=== PATIENT | male | born 1940 | race American Indian/Alaskan Native ===

== ENCOUNTER 2019-09-23 08:23 | Outpatient (CLI) | payer MEDICARE, OTHER ==
[2019-09-23 09:13] LABS: Blood Urea Nitrogen 13 mg/dL (9-20)
--- NOTE | 2019-09-23 11:17 | Cat Scan Report ---
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 COMPARISON: None TECHNIQUE: Routine chest CT exam performed following intravenous contrast administration. Consent wa s obtained prior to the administration of contrast. Note: All CT scans at this location are performed using CT dose reduction employed for ALARA by means of automated exposure control. CONTRAST: 100 mL Omnipaque 300. FINDINGS: CHEST CT: Heart and Pericardium: No significant abnormality. Vasculature: No significant abnormality. Lymphatics: No lymphadenopathy. Lungs: Moderate emphysematous changes with bilateral upper lobe subpleural bulla. Right upper lobe vo lume loss with tubular bronchiectasis. No pulmonary nodule or mass. No airspace disease or pleural ef fusion. Trachea and Bronchi: No significant abnormality. Osseous Structures: Degenerative change in the spine. No suspicious bone lesions. Additional Findings: Normal adrenal glands. IMPRESSION: 1. Emphysema predominantly affecting the upper lobes. 2. Right upper lobe volume loss and tubular bronchiectasis. 3. No evidence of tumor. Signer Name: Robe Sierra MD Signed: 09/23/2019 11:12 AM Workstation Name: [id number]
--- NOTE | 2019-09-23 11:22 | Cat Scan Report ---
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 TECHNIQUE: Axial CT images were obtained through the abdomen and pelvis after 100 cc Omnipaque [address] scans at this location are performed using CT dose reduction for ALARA by means of automated exposure control. COMPARISON: CT abdomen and pelvis 06/08/2015 images only. FINDINGS: LOWER CHEST: No significant abnormality. LIVER: Moderate decreased attenuation is seen throughout the liver characteristic for steatosis. GALLBLADDER: No significant abnormality. BILE DUCTS: No significant abnormality. PANCREAS: No significant abnormality. SPLEEN: No significant abnormality. ADRENALS: No significant abnormality. RIGHT KIDNEY and URETER: No significant abnormality. LEFT KIDNEY and URETER: No significant abnormality. STOMACH and SMALL BOWEL: No significant abnormality. COLON: No significant abnormality. APPENDIX: No significant abnormality. PERITONEUM: No free fluid. No free air. No fluid collection. LYMPH NODES: No significant adenopathy. AORTA and ARTERIES: Moderate vascular calcifications nonaneurysmal aorta and iliac arteries. IVC and VEINS: No significant abnormality. URINARY BLADDER: No significant abnormality. REPRODUCTIVE ORGANS: No significant abnormality. ADDITIONAL FINDINGS: None. SKELETAL SYSTEM: Moderate degenerative changes lower lumbar spine. IMPRESSION: 1. No CT evidence for adenopathy or metastatic disease. 2. Moderate hepatic steatosis Signer Name: Mele Rodríguez MD Signed: 09/23/2019 11:17 AM Workstation Name: [id number]
== END 2019-09-23 08:24 | disposition home or self-care (01) ==
LOC: CT 08:23
PROVIDERS: ATTEND Internal Medicine Hematology & Oncology
DX: J43.9 Emphysema, unspecified (principal); M47.816 Spondylosis without myelopathy or radiculopathy, lumbar region; K76.0 Fatty (change of) liver, not elsewhere classified; J47.9 Bronchiectasis, uncomplicated
CPT/HCPCS: 36415; 71260; 74177; 82565; 84520